=== PATIENT | male | born 1965 | race Caucasian/White ===

== ENCOUNTER 2025-02-07 22:25 | Inpatient (IN) | payer SELFPAY ==
[~2025-02-07] VITALS: Ht 165.1 cm; Wt 61.2 kg
[2025-02-07] MEDS ORDERED: ONDANSETRON 4 MG/2 ML VIAL ONE (23:21)
[2025-02-07] MEDS ORDERED: MORPHINE SULFATE 4 MG/1 ML DISP.SYRIN ONE (23:21)
[2025-02-07 23:23] LABS: BASOPHILS # (AUTO) 0.1 K/UL (0.0-0.2); BASOPHILS % (AUTO) 0.4 % (0.0-2.0); DIFFERENTIAL COMMENT 1; HEMATOCRIT 38.3 % (36.7-47.1); LYMPHOCYTES # (AUTO) 0.4 K/uL (0.8-4.8); LYMPHOCYTES % (AUTO) 2.9 % (20.5-51.5); MEAN CORPUSCULAR HEMOGLOBIN 31.7 uug (23.8-33.4); MEAN CORPUSCULAR HGB CONC 34 g/dL (32.5-36.3); MEAN CORPUSCULAR VOLUME 93.2 fL (73.0-96.2); MONOCYTES # (AUTO) 0.9 K/uL (0.1-1.30); MONOCYTES % (AUTO) 6.7 % (0.0-11.0); NEUTROPHILS # (AUTO) 12.1 K/uL (1.8-8.9); PLATELET COUNT (AUTO) 407 K/uL (152-348); RED BLOOD CELL COUNT(AUTO) 4.11 MIL/uL (4.06-5.63); RED CELL DISTRIBUTION WIDTH 14.1 % (12.1-16.2); WHITE BLOOD COUNT (AUTO) 13.4 K/uL (3.6-10.2)
[2025-02-07] MEDS: MORPHINE SULFATE 4 MG/1 ML DISP.SYRIN IV ONE (23:26)
[2025-02-07] MEDS: ONDANSETRON 4 MG/2 ML VIAL IV ONE (23:26)
[2025-02-07 23:28] LABS: CALCIUM 8.8 mg/dL (8.5-10.1); CARBON DIOXIDE 24 mmol/L (21-32); CHLORIDE 96 mmol/L (98-107); CREATININE 1.1 mg/dL (0.6-1.3); GLUCOSE 147 mg/dL (74-106); POTASSIUM 3.5 mmol/L (3.5-5.1); SODIUM SERUM 132 mmol/L (136-145); UREA NITROGEN, BLOOD 15 mg/dL (7-18)
[2025-02-07 23:33] LABS: ALANINE AMINOTRANSFERASE 33 U/L (16-63); ALBUMIN 3.7 g/dL (3.4-5.0); ALKALINE PHOSPHATASE 67 U/L (50-136); ASPARTATE AMINOTRANSFERASE 20 U/L (15-37); BILIRUBIN,DIRECT 0.1 mg/dL (0.0-0.2); BILIRUBIN,TOTAL 0.6 mg/dL (0.2-1.0); TOTAL PROTEIN, SERUM 6.6 g/dL (6.4-8.2)
[2025-02-07] MEDS ORDERED: IOHEXOL 350 100 ML INFUS..BTL ONE (23:47)
[2025-02-07] MEDS ORDERED: IV NORMAL SALINE 250 ML IV ONE (23:47)
[2025-02-07] MEDS ORDERED: SWABABLE VALVE TRANSFER SET EA MC ONE (23:47)
[2025-02-08] MEDS ORDERED: CEFTRIAXONE /D5W 50ML IVPB **ER PYXIS IV ONE (00:16)
[2025-02-08] MEDS: CEFTRIAXONE 1 G in IV DEXTROSE 5% 50 ML IV ONE (00:25)
[2025-02-08] MEDS ORDERED: SWABABLE VALVE TRANSFER SET EA MC ONE (01:12)
[2025-02-08] MEDS ORDERED: IV NORMAL SALINE 250 ML IV ONE (01:12)
[2025-02-08] MEDS ORDERED: IOHEXOL 300MG/ML 100 ML INFUS..BTL ONE (01:12)
[2025-02-08] MEDS ORDERED: ENOXAPARIN SODIUM 60 MG/0.6 ML DISP.SYRIN SQ ONE (01:58)
[2025-02-08] MEDS: ENOXAPARIN SODIUM 60 MG/0.6 ML DISP.SYRIN SQ ONE (02:04)
[2025-02-08] MEDS: IV NORMAL SALINE 1000 ML BAG IV ONE ×2 (02:06→03:28)
[2025-02-08] MEDS ORDERED: levoFLOXacin 750MG/D5W 150 ML IV ONE (03:03)
[2025-02-08] MEDS: levoFLOXacin 750 MG/D5W 150 ML PIGGYBACK IV ONE (03:28)
[2025-02-08 03:33] LABS: *BILIRUBIN,URIN NEGATIVE (NEGATIVE); *BLOOD, URINE 1+ (NEGATIVE); *CLARITY,URINE CLEAR (CLEAR); *COLOR,URINE YELLOW (YELLOW); *KETONES,URINE 2+ (NEGATIVE); *PROTEIN,URINE TRACE (NEGATIVE); *UROBILINOGEN,URINE 0.2 E.U./dl (NORMAL); LEUKOCYTE ESTERASE ,URINE NEGATIVE (NEGATIVE); NITRITE, URINE NEGATIVE (NEGATIVE); PH,URINE 5.5 (5.0-8.0); UGLUCOSE NEGATIVE (NEGATIVE)
[2025-02-08 03:39] LABS: RBC,URINE 0-3 /HPF (0-3); WBC,URINE NONE SEEN /HPF (0-3)
[2025-02-08 03:40] LABS: BACTERIA,URINE NONE SEEN /HPF (NONE SEEN); MUCUS,URINE FEW /LPF (0-FEW); SQUAMOUS EPITHELIAL CELL,UR NONE SEEN /HPF (NONE SEEN)
[2025-02-08 03:42] LABS: *AMPHETAMINE, URINE NEGATIVE (NEGATIVE); *BARBITURATE, URINE NEGATIVE (NEGATIVE); *BENZODIAZEPINE, URINE NEGATIVE (NEGATIVE); *CANNABINOID, URINE POSITIVE (NEGATIVE); *COCCAINE, URINE NEGATIVE (NEGATIVE); *OPIATE, URINE POSITIVE (NEGATIVE); *PHENCYCLIDINE SCREEN,URINE NEGATIVE (NEGATIVE); FENTANYL, URINE NEGATIVE (NEGATIVE)
[2025-02-08] MEDS ORDERED: DEXAMETHASONE SOD PHOSPHATE 4 MG INJ ONE (04:14)
[2025-02-08] MEDS ORDERED: levETIRAcetam 500 MG/5 ML VIAL IV ONE (04:14)
[2025-02-08] MEDS ORDERED: IV NS 1000 ML 1,000 ML IV SCH (04:15)
[2025-02-08] MEDS ORDERED: hydrALAZINE HCL 20 MG/1 ML VIAL IV PRN (04:15)
[2025-02-08] MEDS ORDERED: ONDANSETRON 4 MG/2 ML VIAL IV PRN (04:15)
[2025-02-08] MEDS: DEXAMETHASONE SOD PHOSPHATE 4 MG INJ IV ONE (04:15)
[2025-02-08] MEDS: levETIRAcetam IV 500 MG in IV DEXTROSE 5% 100 ML IV ONE (04:16)
[2025-02-08] MEDS: IV NS 1000 ML 1,000 ML IV PRN (05:35)
[2025-02-08 05:37] VITALS: BP 124/70; TEMP 100.2; O2SAT 97
[2025-02-08] MEDS: MORPHINE SULFATE 2 MG/1 ML DISP.SYRIN IVP PRN (05:41)
[2025-02-08] MEDS: ACETAMINOPHEN 325 MG TABLET PO PRN (06:08)
[2025-02-08 08:00] VITALS: BP 110/58; TEMP 100; O2SAT 95
[2025-02-08 11:55] VITALS: BP 121/72; TEMP 99.2; O2SAT 96
[2025-02-08 14:00] VITALS: TEMP 100.4
[2025-02-08] MEDS: levETIRAcetam 500 MG TABLET PO SCH (15:05)
[2025-02-08 16:00] VITALS: BP 114/65; TEMP 100; O2SAT 96
[2025-02-08] MEDS ORDERED: CEFTRIAXONE 2 G VIAL IV SCH (16:45)
[2025-02-08 19:50] VITALS: BP 125/69; TEMP 98.1; O2SAT 97
[2025-02-08] MEDS: VANCOMYCIN IV 1,000 MG in IV DEXTROSE 5% 250 ML IV SCH (20:32)
[2025-02-08] MEDS ORDERED: CEFTRIAXONE 1 G in IV DEXTROSE 5% 50 ML IV SCH (22:00)
[2025-02-08] MEDS ORDERED: CEFTRIAXONE 2 G in IV DEXTROSE 5% 100 ML IV SCH (22:00)
[2025-02-08] MEDS ORDERED: PIPERACILLIN/TAZOBACTAM/D5W 100 ML IV ONE (22:58)
[2025-02-08] MEDS: PIPERACILLIN SODIUM/TAZOBACTAM 3.375 G in IV DEXTROSE 5% 50 ML IV SCH (23:14)
[2025-02-09] VITALS: BP 112/54; TEMP 99.4; O2SAT 98
[2025-02-09] MEDS ORDERED: levoFLOXacin 750MG/D5W 750 MG in PREMIXED 1 EACH IV SCH (03:00)
[2025-02-09 05:00] VITALS: BP 115/58; TEMP 98.5; O2SAT 98
[2025-02-09 06:55] LABS: BASOPHILS % (AUTO) 0.3 % (0.0-2.0); HEMATOCRIT 37.4 % (36.7-47.1); LYMPHOCYTES # (AUTO) 0.4 K/uL (0.8-4.8); LYMPHOCYTES % (AUTO) 2.6 % (20.5-51.5); MEAN CORPUSCULAR HEMOGLOBIN 30.5 uug (23.8-33.4); MEAN CORPUSCULAR HGB CONC 32 g/dL (32.5-36.3); MEAN CORPUSCULAR VOLUME 95.2 fL (73.0-96.2); MONOCYTES # (AUTO) 1.7 K/uL (0.1-1.30); MONOCYTES % (AUTO) 11.1 % (0.0-11.0); NEUTROPHILS # (AUTO) 13.4 K/uL (1.8-8.9); PLATELET COUNT (AUTO) 375 K/uL (152-348); RED BLOOD CELL COUNT(AUTO) 3.94 MIL/uL (4.06-5.63); RED CELL DISTRIBUTION WIDTH 14.5 % (12.1-16.2); WHITE BLOOD COUNT (AUTO) 15.6 K/uL (3.6-10.2)
[2025-02-09 07:01] LABS: DIFFERENTIAL COMMENT 1
[2025-02-09 07:11] LABS: ALBUMIN 3.1 g/dL (3.4-5.0); BILIRUBIN,TOTAL 0.7 mg/dL (0.2-1.0); CALCIUM 8.5 mg/dL (8.5-10.1); CREATININE 1.1 mg/dL (0.6-1.3); PHOSPHOROUS 2.7 mg/dL (2.5-4.9); POTASSIUM 3.8 mmol/L (3.5-5.1); TOTAL PROTEIN, SERUM 6.7 g/dL (6.4-8.2)
[2025-02-09 07:33] VITALS: BP 117/55; TEMP 98.2; O2SAT 97
[2025-02-09 08:37] LABS: C-REACTIVE PROTEIN 10.22 mg/dL (0.00-0.30)
[2025-02-09 09:03] LABS: THYROID STIMULATING HORMONE 10.253 mIU/mL (0.358-3.740)
[2025-02-09 11:32] VITALS: BP 106/91; TEMP 101; O2SAT 98
[2025-02-09] MEDS: PIPERACILLIN SODIUM/TAZOBACTAM 3.375 G in IV DEXTROSE 5% 100 ML IV SCH (14:04)
[2025-02-09 15:45] VITALS: BP 105/54; TEMP 98.2; O2SAT 95
[2025-02-09 16:02] LABS: *RHEUMATOID FACTOR SCREEN NEGATIVE (NEGATIVE)
[2025-02-09 16:16] LABS: HIV-1 p24 ANTIGEN NON REACTIVE (NONREACTIVE); HIV-1/2 ANTIBODY NON REACTIVE (NONREACTIVE)
[2025-02-09 16:36] LABS: FERRITIN 38 ng/mL (26-388); IRON, SERUM 24 ug/dL (50-175); LACTATE DEHYDROGENASE 212 U/L (85-227)
[2025-02-09 20:00] VITALS: BP 140/74; TEMP 101; O2SAT 95
[2025-02-09] MEDS: MELATONIN 3 MG TABLET PO SCH (21:23)
[2025-02-10] MEDS: LEVOTHYROXINE SODIUM 25 MCG TABLET PO SCH (06:07)
[2025-02-10 06:51] LABS: BASOPHILS % (AUTO) 0.2 % (0.0-2.0); HEMATOCRIT 34.5 % (36.7-47.1); HEMOGLOBIN 11.5 g/dL (12.5-16.3); LYMPHOCYTES # (AUTO) 0.3 K/uL (0.8-4.8); LYMPHOCYTES % (AUTO) 3.1 % (20.5-51.5); MEAN CORPUSCULAR HEMOGLOBIN 31.4 uug (23.8-33.4); MEAN CORPUSCULAR HGB CONC 33 g/dL (32.5-36.3); MEAN CORPUSCULAR VOLUME 94.3 fL (73.0-96.2); MONOCYTES % (AUTO) 11.3 % (0.0-11.0); NEUTROPHILS # (AUTO) 7.7 K/uL (1.8-8.9); NEUTROPHILS % (AUTO) 85.4 % (38.5-71.5); PLATELET COUNT (AUTO) 330 K/uL (152-348); RED BLOOD CELL COUNT(AUTO) 3.66 MIL/uL (4.06-5.63); RED CELL DISTRIBUTION WIDTH 14.5 % (12.1-16.2)
[2025-02-10 07:03] LABS: DIFFERENTIAL COMMENT 1
[2025-02-10 07:05] LABS: CALCIUM 8.2 mg/dL (8.5-10.1); MAGNESIUM 2.1 mg/dL (1.8-2.4); PHOSPHOROUS 1.8 mg/dL (2.5-4.9); POTASSIUM 3.2 mmol/L (3.5-5.1); VANCOMYCIN,TROUGH 14.7 ug/mL (10.0-20.0)
[2025-02-10] MEDS: VANCOMYCIN IV 1,000 MG in IV DEXTROSE 5% 250 ML IV SCH (08:17)
[2025-02-10 10:35] VITALS: BP 108/58; TEMP 100.4; O2SAT 96
[2025-02-10] MEDS: POTASSIUM CHLORIDE 20 MEQ TAB.PRT.SR PO ONE (11:30)
[2025-02-10 11:39] VITALS: BP 118/56; TEMP 100; O2SAT 97
[2025-02-10 11:50] VITALS: BP 118/56; TEMP 98.8; O2SAT 97
[2025-02-10] MEDS ORDERED: NEUTRA PHOS PACKET PO ONE (16:00)
[2025-02-10 20:23] LABS: FREE T4 (FREE THYROXINE) 1.06 ng/dL (0.76-1.46)
[2025-02-10] MEDS ORDERED: FERROUS SULFATE 325 MG TABEC PO SCH (21:00)
[2025-02-11 05:08] LABS: *IMMUNOGLOBULIN G, SERUM 651 mg/dL (603-1613); HEPATITIS B CORE AB, IgM Negative (Negative); HEPATITIS B CORE AB, TOTAL Negative (Negative); HEPATITIS B SURFACE AB, QUAL Non Reactive (.); HEPATITIS B SURFACE AG Negative (Negative); HEPATITIS C VIRUS ANTIBODY Non Reactive (Non Reactive); IMMUNOGLOBULIN A, SERUM 200 mg/dL (61-437); IMMUNOGLOBULIN M, SERUM 84 mg/dL (20-172)
[2025-02-13 11:07] LABS: ANGIOTENSION CONVERTING ENZYME 81 U/L (14-82)
== END 2025-02-10 15:35 | disposition short-term general hospital (02) | DRG 94 ==
LOC: ER 22:25 → TELE3 02-08 04:20 → MEDSURG3 02-09 09:20
PROVIDERS: ADMIT Internal Medicine
DX: G06.0 Intracranial abscess and granuloma (principal); G93.6 Cerebral edema; J18.9 Pneumonia, unspecified organism; E87.1 Hypo-osmolality and hyponatremia; G32.81 Cerebellar ataxia in diseases classified elsewhere; C34.92 Malignant neoplasm of unspecified part of left bronchus or lung; C34.91 Malignant neoplasm of unspecified part of right bronchus or lung; I78.0 Hereditary hemorrhagic telangiectasia; S16.1XXA Strain of muscle, fascia and tendon at neck level, initial encounter; V41.5XXA Car driver injured in collision with pedal cycle in traffic accident, initial encounter; Y92.89 Other specified places as the place of occurrence of the external cause; E03.9 Hypothyroidism, unspecified; D64.9 Anemia, unspecified; Z98.42 Cataract extraction status, left eye; Z98.41 Cataract extraction status, right eye; Z83.3 Family history of diabetes mellitus; K05.6 Periodontal disease, unspecified; E04.1 Nontoxic single thyroid nodule; F12.90 Cannabis use, unspecified, uncomplicated; D75.839 Thrombocytosis, unspecified; D72.829 Elevated white blood cell count, unspecified; Z59.71 Insufficient health insurance coverage
CPT/HCPCS: 36415; 70450; 70496; 70553; 71045; 71260; 72125; 82378; 82746; 82784; 83605; 83615; 83735; 84100; 84153; 84155; 84165; 84443; 84484; 85025; 85730; 86140; 86334; 86430; 86704; 86705; 86706; 86803; 87040; 87340; 87806; G0378; J0696; J1100; J1650; J1953; J1956; J2270; J2405; J2543; J3370; J7040; J7050; Q9967